=== PATIENT | male | born 1965 | race Caucasian/White ===

== ENCOUNTER 2021-04-25 10:58 | Emergency (ER) | payer MEDICAID ==
--- NOTE | 2021-04-25 11:45 | EDM.PDOC ---
ED HPI GENERAL MEDICAL PROBLEM - General Chief Complaint: Eye Problems Time Seen by Provider: 04/25/21 11:20 Source of Information: Reports: Patient History Limitations: Reports: No Limitations - History of Present Illness INITIAL COMMENTS - FREE TEXT/NARRATIVE: 56 yo presents with mild itching and discharge bilateral eyes, mild nasal congestion. no vision changes - Related Data Allergies Allergy/AdvReac Type Severity Reaction Status Date / Time No Known Allergies Allergy Verified 04/25/21 11:18 Home Meds: Home Meds NK [No Known Home Meds] 04/25/21 [History] Past Medical History HEENT History: Reports: None Cardiovascular History: Reports: None Respiratory History: Reports: None Gastrointestinal History: Reports: None Genitourinary History: Reports: None Musculoskeletal History: Reports: None Endocrine/Metabolic History: Reports: None Hematologic History: Reports: None Immunologic History: Reports: None Oncologic (Cancer) History: Reports: None - Infectious Disease History Infectious Disease History: Reports: Chicken Pox, Novel Coronavirus - Past Surgical History HEENT Surgical History: Reports: None GI Surgical History: Reports: None Musculoskeletal Surgical History: Reports: None Social & Family History - Tobacco Use Tobacco Use Status *Q: Never Tobacco User ED ROS GENERAL - Review of Systems Review Of Systems: See Below Constitutional: Denies: Fever, Chills HEENT: Reports: Eye Discharge Respiratory: Denies: Shortness of Breath, Wheezing Cardiovascular: Denies: Chest Pain ED EXAM GENERAL W FULL EYE - Physical Exam Exam: See Below Exam Limited By: No Limitations General Appearance: Alert, WD/WN, No Apparent Distress Eyelids: Bilateral: Normal Appearance Conjunctiva & Sclera: Bilateral: Conjunctival Edema, Discharge, Injected Head: Atraumatic, Normocephalic Respiratory/Chest: No Respiratory Distress, Lungs Clear, Normal Breath Sounds. No: Crackles, Rhonchi, Wheezing Cardiovascular: Regular Rate, Rhythm Course - Vital Signs Last Recorded V/S: Last Vital Signs Temp 36.6 C 04/25/21 11:16 Pulse 80 04/25/21 11:16 Resp 16 04/25/21 11:16 BP 137/88 04/25/21 11:16 Pulse Ox 97 04/25/21 11:16 Departure - Departure Time of Disposition: 11:43 Disposition: Home, Self-Care 01 Condition: Good Clinical Impression: Conjunctivitis Qualifiers: Conjunctivitis type: acute Acute conjunctivitis type: bacterial Laterality: bi lateral Qualified Code(s): H10.33 - Unspecified acute conjunctivitis, bilateral - Discharge Information *PRESCRIPTION DRUG MONITORING PROGRAM REVIEWED*: Not Applicable *COPY OF PRESCRIPTION DRUG MONITORING REPORT IN PATIENT ANITA: Not Applicable Instructions: Bacterial Conjunctivitis, Adult, [id number] Referrals: PCP,None [Primary Care Provider] - Forms: ED Department Discharge Additional Instructions: antibiotic eye drops every 4 hours while awake you are contagious for 24 more hours after starting the antibiotics wash hands and wipe down door handles follow-up with eye doctor if you develop severe pain in your eye Sepsis Event Note (ED) - Evaluation Sepsis Screening Result: No Definite Risk - Focused Exam Vital Signs: Vital Signs Temp Pulse Resp BP Pulse Ox 04/25/21 11:16 36.6 C 80 16 137/88 97
== END 2021-04-25 11:50 | disposition home or self-care (01) ==
LOC: JP.ED 10:58
DX: H10.33 Unspecified acute conjunctivitis, bilateral (principal)
CPT/HCPCS: 99283